=== PATIENT | male | born 1990 | race Caucasian/White ===

== ENCOUNTER 2017-01-05 11:16 | Emergency (ER) | payer OTHER ==
[~2017-01-05] VITALS: Wt 57.4 kg
--- NOTE | 2017-01-05 12:56 | ERD ---
ER Documentation Chief Complaint Date/Time DATE: 01/05/17 TIME: 12:53 Chief Complaint CHEST PAIN SINCE YESTERDAY AND RIGHT ARM CRAMPING.FEELS WEAK AND SHAKY HPI This is a 26-year-old male who presents the emergency department today complaining of chest pain. Patient states he felt this way 5 days ago as well and was seen last week at [facility] urgent care and had laboratory work done and was told that his white blood cell count was elevated.. 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 Patient states he feels like he has "butterflies in his chest". States his palms are sweaty and he has tingling in the back of his neck. States he has had some abdominal problems and has an appointment for gastroenterology specialist tomorrow. States he has lost a lot of weight. States he is here from [facility] and is awaiting a work visa. Denies any fevers or chills. Denies any headache or blurred vision or dizziness. ROS All systems reviewed and are negative except as per history of present illness. Medications Home Meds Active Scripts Lorazepam* (Lorazepam*) 1 Mg Tablet, 1 MG PO Q8, #10 TAB Prov:LOBO MELGAR PA-C 01/05/17 Allergies Allergies: Coded Allergies: No Known Allergy (Unverified , 01/05/17) PMhx/Soc Medical and Surgical Hx: pt denies Medical Hx, pt denies Surgical Hx Hx Alcohol Use: No Hx Substance Use: No Hx Tobacco Use: No Smoking Status: Never smoker Physical Exam Vitals Vital Signs Date Time Temp Pulse Resp B/P Pulse Ox O2 Delivery O2 Flow Rate FiO2 01/05/17 11:21 98.5 86 20 131/57 98 Physical Exam Const: Pleasant, no acute distress Head: Atraumatic Eyes: Normal Conjunctiva. PERRLA. EOM intact. ENT: Normal External Ears, Nose and Mouth. Neck: Full range of motion..~ No meningismus. Resp: Clear to auscultation bilaterally. No absent breath sounds. Nontender to palpation. Cardio: Regular rate and rhythm, no murmurs Abd: Soft, non tender, non distended. Normal bowel sounds Skin: No petechiae or rashes Neur: Awake and alert no focal neurologic deficits. No gait ataxia. Psych: Normal Mood and Affect Result Diagram: 01/05/17 1255 01/05/17 1255 Results 24 hrs Laboratory Tests Test 01/05/17 12:55 Alanine Aminotransferase (ALT/SGPT) 33IU/L Albumin 4.9g/dl Albumin/Globulin Ratio 1.48 Alkaline Phosphatase 68IU/L Anion Gap 19 Aspartate Amino Transf (AST/SGOT) 25IU/L Basophils # 0.110^3/ul Basophils % 0.6% Blood Urea Nitrogen 11mg/dl Calcium Level 10.0mg/dl Carbon Dioxide Level 24mmol/L Chloride Level 104mmol/L Creatinine 0.76mg/dl D-Dimer < 220.00ng/ml D-Dimer Comment Direct Bilirubin 0.00mg/dl Eosinophils # 0.010^3/ul Eosinophils % 0.5% Free Thyroxine Index 4.17ug/ml Globulin 3.30g/dl Glucose Level 101mg/dl Hematocrit 46.6% Hemoglobin 15.9g/dl Indirect Bilirubin 0.7mg/dl Lymphocytes # 1.510^3/ul Lymphocytes % 19.7% Mean Corpuscular Hemoglobin 31.2pg Mean Corpuscular Hemoglobin Concent 34.1g/dl Mean Corpuscular Volume 91.6fl Mean Platelet Volume 10.6fl Monocytes # 0.810^3/ul Monocytes % 9.7% Neutrophils # 5.310^3/ul Neutrophils % 69.4% Nucleated Red Blood Cells # 0.010^3/ul Nucleated Red Blood Cells % 0.0/100WBC Platelet Count 84126^3/UL Potassium Level 4.0mmol/L Red Blood Count 5.0910^6/ul Red Cell Distribution Width 12.8% Sodium Level 143mmol/L Thyroid Stimulating Hormone (TSH) 0.830MIU/L Thyroxine (T4) 11.9ug/dl Total Bilirubin 0.7mg/dl Total Protein 8.2g/dl Triiodothyronine (T3) Uptake 35.0% Troponin I < 0.010ng/ml White Blood Count 7.710^3/ul Current Medications Medications (Trade) Dose Ordered Sig/Angelica Route PRN Reason Start Time Stop Time Status Last Admin Dose Admin Lorazepam (Ativan) 1 mg ONCE ONCE PO 01/05/17 13:00 01/05/17 13:01 DC 01/05/17 12:50 Patient: DONNA WEINER : 1990 Age: 26 Sex: M MR #: [id number] DOS: 01/05/17 1244 Ordering MD: LOBO MELGAR PA-C Location: [facility] Room/Bed: PROCEDURE: Chest Radiograph. CLINICAL INDICATION: Chest pain TECHNIQUE: Single frontal chest radiograph. COMPARISON: None available FINDINGS: The cardiomediastinal silhouette is within normal limits. The lungs are hyperinflated. Blunting of the costophrenic angles is likely related to hyperinflation. There is no infiltrate present. No definitive pleural effusion is seen. The bones are intact. IMPRESSION: 1. Pulmonary hyperinflation. 2. Blunting of the bilateral costophrenic angles is likely related to pulmonary hyperinflation, though small pleural effusions can have this appearance. A lateral view of the chest can distinguish these entities if clinically indicated. 3. No definitive evidence of acute cardiopulmonary disease RPTAT: HJBF .Prateek Mckee MD MD Date Time Electronically viewed and signed by .Prateek Mckee MD, MD on 2016 13:15 .B/ CC: LOBO MELGAR PA-C DIAGNOSTIC IMAGING REPORT Patient: DONNA WEINER : 1990 Age: 26 Sex: M MR #: [id number] DOS: 01/05/17 0000 Ordering MD: LOBO MELGAR PA-C Location: [facility] Room/Bed: PROCEDURE: XR Chest. CLINICAL INDICATION: Chest pain TECHNIQUE: Lateral chest view performed. COMPARISON: PA chest 01/05/2017 at 13:05 hour FINDINGS: The mediastinal structures are unremarkable. The heart is normal in size and configuration. The pulmonary vascularity is normal. There is hyperinflation. No consolidation is identified. The pleural spaces are unremarkable. The axial skeleton is unremarkable. IMPRESSION: Hyperinflation No effusions identified No active intrathoracic disease. RPTAT: HGDB .Marky Deleon MD, Date Time Electronically viewed and signed by .Marky Deleon MD, on 01/05/2017 14:01 .B/ CC: LOBO MELGAR PA-C Procedures/MDM This is a 26-year-old male who presents the emergency department today primarily complaining of chest pain and one syncopal episode last week. Patient recently had laboratory work done at [facility] urgent care last week however I do not have access to those records at this time. I did obtain an EKG and chest x-ray as well as some laboratory work. EKG read and interpreted by Dr. Jovel rate [address] elevation. No QT prolongation. Low suspicion for acute IN, PE, pericarditis. Chest x-ray shows pulmonary hyperinflation. There is blunting of the bilateral costophrenic angles likely related to pulmonary hypo-inflation though small pleural effusions can have this appearance.. There is no infiltrate. Lateral view is recommended. Lateral view shows no effusion. There is no consolidation. Pleural spaces are unremarkable. Suspicion for PE, abscess, pneumothorax, pleural effusion, pneumonia Laboratory work shows no elevated white blood cell count. He is not anemic. Electrolytes are within normal limits. Liver function is within normal limits. Platelets are within normal limits. Glucose is within normal D-dimer is negative Troponin is negative TSH is within normal limits. Free T4 and thyroxine is mildly elevated. T3 uptake is within normal limits. I have explained all the laboratory work to the patient. Patient was given 1 mg Ativan here in the emergency department and symptoms improved. Patient symptoms at this time of chest pain may be related to anxiety. I will send the patient home with a very short course of Ativan. Patient has syncopal episode of uncertain etiology. I have explained to the patient he is to take all of his laboratory workup back to his primary care physician for further evaluation and management. Patient understood. At this time the patient is stable for discharge and outpatient management. Patient should follow up with their PCP in the next 1-2 days. They may return to the emergency department sooner for any persistent or worsening of symptoms. Patient understood and agreed with the plan. Discussed the patient with Dr. Handy and he is in agreement with the plan. Departure Diagnosis: Primary Impression: Chest pain Chest pain type: unspecified Qualified Code: R07.9 - Chest pain, unspecified type Condition: Fair LOBO MELGAR PA-C Jan 05, 2017 12:56
[2017-01-05] MEDS ORDERED: LORAZEPAM 1 MG TAB PO ONE (13:00)
--- NOTE | 2017-01-05 13:15 | RADRPT ---
PROCEDURE: Chest Radiograph. CLINICAL INDICATION: Chest pain TECHNIQUE: Single frontal chest radiograph. COMPARISON: None available FINDINGS: The cardiomediastinal silhouette is within normal limits. The lungs are hyperinflated. Blunting of the costophrenic angles is likely related to hyperinflation. There is no infiltrate present. No de finitive pleural effusion is seen. The bones are intact. IMPRESSION: 1. Pulmonary hyperinflation. 2. Blunting of the bilateral costophrenic angles is likely related to pulmonary hyperinflation, tho ugh small pleural effusions can have this appearance. A lateral view of the chest can distinguish t hese entities if clinically indicated. 3. No definitive evidence of acute cardiopulmonary disease RPTAT: HJBF .Prateek Mckee MD, Date Time Electronically viewed and signed by .Prateek Mckee MD, on 01/05/2017 13:15 .B/
[2017-01-05 13:20] LABS: ADD SCAN DIFF NO
[2017-01-05 13:23] LABS: BASOPHIL # 0.1 10^3/ul (0.0-0.1); BASOPHILS % 0.6 % (0.0-2.0); EOSINOPHILS % 0.5 % (0.0-7.0); HEMATOCRIT 46.6 % (42.0-52.0); HEMOGLOBIN 15.9 g/dl (14.0-18.0); LYMPHOCYTES # 1.5 10^3/ul (0.8-2.9); LYMPHOCYTES % 19.7 % (15.0-51.0); MEAN CORPUSCULAR HEMOGLOBIN 31.2 pg (29.0-33.0); MEAN CORPUSCULAR HGB CONC 34.1 g/dl (32.0-37.0); MEAN CORPUSCULAR VOLUME 91.6 fl (82.0-101.0); MEAN PLATELET VOLUME 10.6 fl (7.4-10.4); MONOCYTE # 0.8 10^3/ul (0.3-0.9); MONOCYTES % 9.7 % (0.0-11.0); NEUTROPHIL # 5.3 10^3/ul (1.6-7.5); NEUTROPHILS % 69.4 % (39.0-77.0); PLATELET COUNT 230 10^3/UL (140-415); RED BLOOD COUNT 5.09 10^6/ul (4.70-6.10); RED CELL DISTRIBUTION WIDTH 12.8 % (11.5-14.5); WHITE BLOOD COUNT 7.7 10^3/ul (4.8-10.8)
[2017-01-05 13:36] LABS: ALBUMIN 4.9 g/dl (3.3-4.9)
[2017-01-05 13:37] LABS: CHLORIDE 104 mmol/L (97-110); SODIUM 143 mmol/L (135-144)
[2017-01-05 13:39] LABS: ANION GAP 19 (8-16); ASPARTATE AMINO TRANSFERASE 25 IU/L (15-46); BILIRUBIN,INDIRECT 0.7 mg/dl (0-1.1); BILIRUBIN,TOTAL 0.7 mg/dl (0.2-1.3); CARBON DIOXIDE 24 mmol/L (21-31); CREATININE 0.76 mg/dl (0.61-1.24)
[2017-01-05 13:40] LABS: ALANINE AMINOTRANSFERASE 33 IU/L (13-69); ALBUMIN/GLOBULIN RATIO 1.48; ALKALINE PHOSPHATASE 68 IU/L (42-121); BLOOD UREA NITROGEN 11 mg/dl (7-20); GLUCOSE 101 mg/dl (70-220); TOTAL PROTEIN 8.2 g/dl (6.1-8.1)
[2017-01-05 13:54] LABS: TROPONIN-I < 0.010 ng/ml (0.00-0.12)
--- NOTE | 2017-01-05 14:01 | RADRPT ---
PROCEDURE: XR Chest. CLINICAL INDICATION: Chest pain TECHNIQUE: Lateral chest view performed. COMPARISON: PA chest 01/05/2017 at 13:05 hour FINDINGS: The mediastinal structures are unremarkable. The heart is normal in size and configuration. The pu lmonary vascularity is normal. There is hyperinflation. No consolidation is identified. The pleur al spaces are unremarkable. The axial skeleton is unremarkable. IMPRESSION: Hyperinflation No effusions identified No active intrathoracic disease. RPTAT: HGDB .Marky Deleon MD, MD Date Time Electronically viewed and signed by .Marky Deleon MD, MD on 01/05/2017 14:01 .B/
[2017-01-05 14:19] LABS: D-DIMER < 220.00 ng/ml (<460)
[2017-01-05 14:31] LABS: THYROID STIMULATING HORMONE 0.83 MIU/L (0.465-4.680)
[2017-01-05] MEDS ORDERED: LORA1TAB PO (15:05)
[2017-01-05 15:15] VITALS: BP 119/74; PULSE 84; RESP 18; TEMP 98.8
== END 2017-01-05 15:17 | disposition home or self-care (01) ==
LOC: FTE 11:16
DX: R07.9 Chest pain, unspecified (principal)
CPT/HCPCS: 71010; 80053; 84436; 84443; 84479; 84484; 85025; 85378; 93005